=== PATIENT | female | born 1980 | race Caucasian/White ===

== ENCOUNTER 2025-01-25 09:46 | Emergency (ER) | payer OTHER, SELFPAY ==
[2025-01-25 09:53] VITALS: BP 164/86; PULSE 95; RESP 18; TEMP 37.1; O2SAT 99; BMI 21.4
--- NOTE | 2025-01-25 10:06 | ED_ITS ---
HPI - Recheck/Abnormal Lab/Rx 2 General: Chief Complaint: Recheck/Abnormal Lab/Rx Stated Complaint: high sugar Time Seen by Provider: 01/25/25 09:49 History of Present Illness: 44-year-old female presents emergency ro om complaining of elevated blood sugars on her Dexcom. Patient has a history of insulin dependent diabetes mellitus she uses Lantus long-acting and sliding scale insulin. She took 10 units of insulin prior to coming in. She took her long-acting insulin 25 units this morning at around 830. She has had elevated blood sugars last couple of days she has been nauseous began having some vomiting this morning denies any recent fever sweats chills, dysuria urgency or frequency mild abdominal discomfort which she relates that to having started throwing up. Related Data Home Medications ?Medication ?Instructions ?Recorded ?Confirmed bupropion HCl 300 mg 24 hr tablet, 300 mg PO QAM 01/2501/25/25 extended release dorzolamide-timolol (PF) 2 %-0.5 % 1 drp ophthalmic (e ye) BID 01/25/25 01/25/25 eye drops in a dropperette insulin glargine 100 unit/mL (3 30 unit SUBCUT QAM 04/1001/25/25 mL) subcutaneous pen insulin regular human 100 unit/mL See Rx Instructions .Route .COMPLEX 01/25/25 01/25/25 (3 mL) subcutaneous pen (Novolin R FlexPen) latanoprost (PF) 0.005 % eye drops 1 drp ophthalmic (e ye) QPM 01/25/25 01/25/25 in a dropperette lisdexamfetamine 20 mg capsule 20 mg PO DAILY 01/25/25 01/25/25 (Vyvanse) norethindrone 1.5 mg-ethinyl 1 tab PO DAILY 01/25/25 0 01/25/25 estradiol 30 mcg(21)/iron 75 mg(7) tablet (Derek Fe 1.5/30 (28)) Previous Rx's ?Medication ?Instructions ?Recorded insulin regular human 100 unit/mL 10 unit (0.1 mL) SUB CUT Q6H #15 mL 01/25/25 (3 mL) subcutaneous pen (Novolin R FlexPen) ondansetron HCl 4 mg tablet 4 mg PO Q6H PRN nausea and 01/25/25 vomiting #20 tabs Allergies Allergy/AdvReac Type Severity Reaction Status Date / Time No Known Allergies Allergy Unverified 01/25/25 10:08 Review of Systems 2 Const: Denies: fever(s) or chills Card: Denies: chest pain Resp: Denies: dyspnea GI: Denies: abdominal pain : Denies: dysuria, urinary frequency or urinary urgency Musc: Denies: neck pain or back pain Skin/Breast: Denies: rash PFSH ED 2 PFSH: Medical History (Updated 01/26/25 @ 06:02 by Carlos Manuel Campbell DO) Insulin dependent diabetes mellitus Physical Exam 2 Const: COMMON NORMALS: no acute distress GENERAL APPEARANCE: cooperative and comfortable ORIENTATION/CONSCIOUSNESS: Yes awake, Yes oriented to person, Yes oriented to place and Yes oriented to time HENMT: COMMON NORMALS: normocephalic, atraumatic and hearing grossly normal bilaterally HEAD & SCALP: normocephalic and atraumatic Resp: COMMON NORMALS: normal respiratory effort, No retractions, No use of accessory muscles and clear to auscultation bilaterally AUSCULTATION: clear to auscultation bilaterally Cardio: COMMON NORMALS: regular rate, regular rhythm and No murmurs present (Cardio) RATE: regular rate RHYTHM: regular rhythm GI: COMMON NORMALS: Soft to palpation and No hepatosplenomegaly present A USCULTATION: Yes normoactive bowel sounds PALPATION: Yes Soft to palpation, No Tenderness to palpation present (GI), No Guarding due to palpation present (GI) and Yes No hepatosplenomegaly present Extremity: COMMON NORMALS: normal to inspection, capillary refill normal, no clubbing, cyanosis or edema, no calf tenderness and no pedal edema Neuro: SENSORIUM/ORIENTATION: Yes oriented to person, Yes oriented to place and Yes oriented to time Skin: COMMON NORMALS: no rashes or lesions noted GENERAL SKIN EXAM: no rashes or lesions noted Course 2 Vital Signs: Vital signs: Vital Signs Temperature 98.7 F 01/25/25 09:53 Pulse Rate 95 01/25/25 13:48 Respiratory Rate 16 01/25/25 13:48 Blood Pressure 117/67 01/25/25 13:48 Pulse Oximetry 100 01/25/25 13:48 Oxygen Delivery Me thod Room Air 01/25/25 13:00 MDM - Recheck/Abnormal Lab/Rx Medical Decision Making Urine shows 6-10 white blood cells per high-power field but negative nuclear leukocyte esterase negative nitrite she did have a few epithelial cells. Suspect this is a contaminant. She is not having symptoms did not initiate any antibiotics until we have a culture back. Anion gap and potassium improved after fluids and treatment with insulin her blood sugar serum is down to 138 she is feeling much better will discharge home with ondansetron to use as needed as well as refilled her Norphyllin she noticed she is not really getting any improvement of her blood sugar with her short acting insulin suspected in pen may have gotten subject to heat to her for what ever other reason is not functioning as well anymore recommend she discard it and replace it with a new. Medical Records I reviewed the patient's medical records. Lab Data I reviewed the patient's lab results. 01/25/25 10:06 01/25/25 12:58 Laboratory Results WBC 9.88 10^3/uL (3.29-11.43) 01/25/25 10:06 RBC 3.33 10^6/uL (3.85-5.65) L 01/25/25 10:06 Hgb 9.10 g/dL (11.27-16.99) L 01/25/25 10:06 Hct 28.8 % (36-47) L 01/25/25 10:06 MCV 86.5 fl (85-98) 01/25/25 10:06 MCH 27.3 pg (27-33) 01/25/25 10:06 MCHC 31.6 g/dL (30-55) 01/25/25 10:06 RDW 14.4 % (12.1-15.1) 01/25/25 10:06 Plt Count 393 10^3/cmm (157-399) 01/25/25 10:06 MPV 10.8 fL (7.4-10.4) H 01/25/25 10:06 Neut % (Auto) 67.4 % 01/25/25 10:06 Lymph % (Auto) 23.0 % 01/25/25 10:06 Sharkey % (Auto) 6.1 % 01/25/25 10:06 Eos % (Auto) 2.2 % 01/25/25 10:06 Baso % (Auto) 1.0 % 01/25/25 10:06 Neut # (Auto) 6.66 10^3/uL (1.8-7.7) 01/25/25 10:06 Lymph # (Auto) 2.3 10^3/uL (0.8-4.8) 01/25/25 10:06 Sharkey # (Auto) 0.6 10^3/uL (0.2-0.9) 01/25/25 10:06 Eos # (Auto) 0.2 10^3/uL (0.0-0.8) 01/25/25 10:06 Baso # (Auto) 0.1 10^3/uL (0.0-0.1) 01/25/25 10:06 Nucleated RBC % (auto) 0 % 01/25/25 10:06 Nucleated RBCs # 0.0 /100WBC 01/25/25 10:06 Sodium 140 mmol/L (136-145) 01/25/25 12:58 Potassium 4.4 mmol/L (3.5-5.1) 01/25/25 12:58 Chloride 113 mmol/L (98-107) H 01/25/25 12:58 Carbon Dioxide 16 mmol/L (22-29) L 01/25/25 12:58 Anion Gap 15.4 (5-19) 01/25/25 12:58 BUN 29 mg/dL (6-20) H 01/25/25 12:58 Creatinine 1.3 mg/dL (0.5-0.9) H 01/25/25 12:58 GFR Calculation 44.5 mL/min (90-130) L 01/25/25 12:58 Glucose 138 mg/dL (65-115) H 01/25/25 12:58 POC Glucose 209 mg/dL (70-110) H 01/25/25 11:50 Calculated Osmolality 298 mOsm/kg (285-295) H 01/25/25 12:58 Calcium 7.6 mg/dL (8.5-10.5) L 01/25/25 12:58 Total Bilirubin 0.3 mg/dL (0.15-1.2) 01/25/25 10:06 AST 8 U/L (0-32) 01/25/25 10:06 ALT 11 U/L (0-33) 01/25/25 10:06 Alkaline Phosphatase 70 U/L (35-105) 01/25/25 10:06 Total Protein 7.3 g/dL (6.6-8.7) 01/25/25 10:06 Albumin 3.7 g/dL (3.5-5.2) 01/25/25 10:06 Globulin 3.6 g/dL (1.3-4.6) 01/25/25 10:06 Urine Color Yellow (Yellow) 01/25/25 11:30 Urine Appearance Clear (CLEAR) 01/25/25 11:30 Urine pH 5.5 (5-7) 01/25/25 11:30 Ur Specific Jasper 1.022 (1.005-1.030) 01/25/25 11:30 Urine Protein 2+ (Negative) A 01/25/25 11:30 Urine Glucose (UA) 3+ (Normal) H 01/25/25 11:30 Urine Ketones 1+ (Negative) H 01/25/25 11:30 Urine Blood Trace (Negative) A 01/25/25 11:30 Urine Nitrate Negative (Negative) 01/25/25 11:30 Urine Bilirubin Negative (Negative) 01/25/25 11:30 Urine Urobilinogen 0.2 mg/dL (Negative) 01/25/25 11:30 Ur Leukocyte Esterase Negative (Negative) 01/25/25 11:30 Urine RBC 0-2 /hpf (0-2) 01/25/25 11:30 Urine WBC 6-10 /hpf (0-5) 01/25/25 11:30 Ur Squamous Epith Cells 0-5 /hpf (0-5) 01/25/25 11:30 Amorphous Sediment Not Reportable 01/25/25 11:30 Urine Bacteria Trace /hpf (NONE) 01/25/25 11:30 Hyaline Casts 7.01 /lpf 01/25/25 11:30 Serum Ketones Negative (Negative) 01/25/25 10:06 No radiology studies performed this visit Discharge Plan Discharge Patient Disposition: Home Clinical Impression: Hyperglycemia, Insulin dependent diabetes mellitus, Hyperkalemia Condition: Stable Prescriptions: New Novolin R FlexPen 100 unit/mL (3 mL) insulin pen 10 unit SUBCUT Q6H Qty: 15 1RF Rx Instructions: Use per your usual sliding scale ondansetron HCl 4 mg tablet 4 mg PO Q6H PRN (Reason: nausea and vomiting) Qty: 20 0RF No Action norethindrone-e.estradiol-iron [Derek Fe 1.5/30 (28)] 1.5 mg-30 mcg (21)/75 mg (7) Tablet 1 tab PO DAILY Novolin R FlexPen 100 unit/mL (3 mL) Insulin Pen See Rx Instructions .ROUTE .COMPLEX Rx Instructions: Inject 3 units subq three times daily before meals per sliding scale. Max of 30 units daily. dorzolamide-timolol (PF) 2-0.5 % Dropperette 1 drp OPHTHALMIC (EYE) BID latanoprost (PF) 0.005 % Dropperette 1 drp OPHTHALMIC (EYE) QPM lisdexamfetamine [Vyvanse] 20 mg Capsule 20 mg PO DAILY bupropion HCl 300 mg Tablet Extended Release 24 Hr 300 mg PO QAM insulin glargine [Semglee Pen U-100 Insulin] 100 unit/mL (3 mL) Insulin Pen 30 unit SUBCUT QAM Discharge Orders: Discharge ED (Routine); Ordered 01/25/25 Ordered By: Carlos Manuel Campbell Discharge Diet: Diabetic Discharge Activity: Resume usual activity Patient Instructions: Opioid Safety, Pain Management, Patient Portal & Latonya Instructions Activity Restrictions/Additional Instructions: Thank you for choosing [facility] for your healthcare needs today. It is very important that you follow up as instructed or that you return to the Emergency Department should you have concerns or if your condition changes or worsens in any way. Emergency department visits are focused on emergent conditions, in some cases you may require further evaluation on an outpatient basis. You were seen in the emergency room with complaints of elevated blood sugar. After fluids and insulin your blood sugar is normalized you have a very small anion gap initially in your blood work and negative ketones. Repeat blood testing showed anion gap at close your potassium had normalized your blood blood glucose had gone down to 138. You are given a prescription for new regular insulin pens follow-up with your primary care doctor. Continue to monitor your blood sugar closely. (Please note that included in your discharge packet is information concerning opioid safety and pain management. This information is given to all patients were discharged from the ER regardless of their discharge diagnosis or the medicines they usually take or are prescribed.) Print Language: Latvian Coding Level of Care Code ED Arabic Linguist for Rico Sosa
[2025-01-25 10:15] LABS: Hematocrit 28.8 % (36-47); Hemoglobin 9.10 g/dL (11.27-16.99); Mean Corpuscular HGB Conc 31.6 g/dL (30-55); Mean Corpuscular Hemoglobin 27.3 pg (27-33); Mean Corpuscular Volume 86.5 fl (85-98); Nucleated Red Blood Cells % 0 %; Platelet Count 393 10^3/cmm (157-399); Red Blood Count 3.33 10^6/uL (3.85-5.65); White Blood Count 9.88 10^3/uL (3.29-11.43)
[2025-01-25] MEDS: insulin regular-human 100 units/1 mL 10 UNIT IVP ×2 (10:27→11:33)
[2025-01-25] MEDS: ondansetron 2 mg/ML SDV 2 mL 4 MG IVP (10:27)
[2025-01-25 10:36] LABS: Ketone (Acetest) Serum Negative (Negative)
--- NOTE | 2025-01-25 10:39 | PC.PHAR ---
Pt just finished a round of Prednisone. Pt has a long acting insulin, and 2 eye drops dorzolamide/timolol, Latanoprost and also bupropion xl 300mg. Pt gave verbal med history and I am waiting on response from Mahesh in [facility] for solid proof of last fill.
[2025-01-25 10:40] LABS: Alanine Aminotransferase 11 U/L (0-33); Albumin Level 3.7 g/dL (3.5-5.2); Alkaline Phosphatase 70 U/L (35-105); Anion Gap 22.2 (5-19); Aspartate Amino Transferase 8 U/L (0-32); Blood Urea Nitrogen 30 mg/dL (6-20); Calcium 9.1 mg/dL (8.5-10.5); Carbon Dioxide 18 mmol/L (22-29); Chloride 102 mmol/L (98-107); Creatinine Clr Calc Pharmacy 46.7060; Globulin 3.6 g/dL (1.3-4.6); Glucose 382 mg/dL (65-115); Osmolality Calculated 306 mOsm/kg (285-295); Potassium 5.2 mmol/L (3.5-5.1); Sodium 137 mmol/L (136-145); Total Protein 7.3 g/dL (6.6-8.7)
[2025-01-25 11:48] LABS: Glucose Urine UA 3+ (Normal); Nitrate Urine Negative (Negative); Specific Gravity, Urine 1.022 (1.005-1.030)
[2025-01-25 11:53] LABS: Add Urine Microscopic? YES
[2025-01-25 11:59] VITALS: PULSE 98; RESP 18; O2SAT 100
[2025-01-25 13:00] VITALS: BP 136/79; PULSE 90; RESP 16; O2SAT 100
[2025-01-25 13:22] LABS: Anion Gap 15.4 (5-19); Blood Urea Nitrogen 29 mg/dL (6-20); Calcium 7.6 mg/dL (8.5-10.5); Carbon Dioxide 16 mmol/L (22-29); Chloride 113 mmol/L (98-107); Creatinine Clr Calc Pharmacy 53.8916; Glucose 138 mg/dL (65-115); Osmolality Calculated 298 mOsm/kg (285-295); Potassium 4.4 mmol/L (3.5-5.1); Sodium 140 mmol/L (136-145)
[2025-01-25 13:48] VITALS: BP 117/67; PULSE 95; RESP 16; O2SAT 100
== END 2025-01-25 13:46 | disposition home or self-care (01) ==
PROVIDERS: Emergency Provider Family Medicine
DX: E11.65 Type 2 diabetes mellitus with hyperglycemia (principal); E87.5 Hyperkalemia; Z79.4 Long term (current) use of insulin
CPT/HCPCS: 36415; 36416; 80048; 80053; 81001; 82009; 82962; 85025; 96361; 96374; 96375; 96376; 99284; J1815; J2405; J7030